=== PATIENT | male | born 1960 | race African-American/Black ===

== ENCOUNTER 2019-10-17 19:40 | Emergency (ER) | payer OTHER ==
[~2019-10-17] VITALS: Ht 188 cm; Wt 81.6 kg
[2019-10-17] MEDS ORDERED: METFORMIN HCL1000 M1 ORAL (19:51)
[2019-10-17 19:54] VITALS: BP 156/95
[2019-10-17] MEDS ORDERED: CEPHALEXIN500 MG ORAL (20:22)
[2019-10-17] MEDS ORDERED: TYLENOL EXTRA500 MG ORAL (20:22)
--- NOTE | 2019-10-17 20:22 | Emergency Room Report ---
History of Present Illness General Chief Complaint: Upper Extremity Injury Source: Patient Present Illness HPI 59-year-old male with history of type 2 diabetes currently taking metformin and control as well as taking baby aspirin every day here complaining of a right elbow pain status post fall that occurred this morning. Patient reports that he slipped and fell on the right elbow. Obvious effusion noted in right elbow however patient denies any pain at that site and has range of motion. Superficial laceration noted however patient reports he was bleeding a lot which admission was due to aspirin. Denies fever and chills, tingling numbness , cough or congestion, shortness of breath. Has not taken medication for symptom relief. Denies head injury or loss of consciousness. Patient is up-to- date with tetanus shot. Allergies: Coded Allergies: No Known Allergies (Unverified , 10/17/19) COVID-19 Screening Contact w/high risk pt: No Experienced COVID-19 symptoms?: No COVID-19 Testing performed CALENDER OPERATOR HELPER: No Patient History Past Medical History: see triage record Past Surgical History: none Pertinent Family History: none Immunizations: UTD Reviewed Nursing Documentation: PMH: Agreed; PSxH: Agreed Nursing Documentation-PMH Past Medical History: No History, Except For Hx Diabetes: Yes Review of Systems All Other Systems: negative except mentioned in HPI Physical Exam Vital Signs Date Time Temp Pulse Resp B/P (MAP) Pulse Ox O2 Delivery O2 Flow Rate FiO2 10/17/19 19:46 98.4 80 18 156/95 (115) 98 Room Air Sp02 EP Interpretation: reviewed, normal General Appearance: no apparent distress, alert, GCS 15, non-toxic Head: normocephalic, atraumatic Eyes: bilateral eye normal inspection, bilateral eye PERRL ENT: hearing grossly normal, normal pharynx, no angioedema, normal voice Neck: full range of motion, supple/symm/no masses Respiratory: chest non-tender, lungs clear, normal breath sounds, no rhonchi, no respiratory distress, no retraction, no wheezing, speaking full sentences Cardiovascular #1: regular rate, rhythm, no edema, no murmur Cardiovascular #2: 2+ radial (R), 2+ radial (L) Gastrointestinal: normal bowel sounds, non tender, soft, non-distended, no guarding, no rebound Rectal: deferred Genitourinary: no CVA tenderness Musculoskeletal: back normal, no lower extremity edema, swelling - Right elbow with a small laceration Neurologic: alert, motor strength/tone normal, oriented x3, sensory intact, responsive, speech normal Psychiatric: judgement/insight normal, memory normal, mood/affect normal, no suicidal/homicidal ideation Skin: laceration - Superficial laceration right elbow Lymphatic: no adenopathy Procedures Laceration/Wound Repair Laceration/Wound Repair : Consent: Verbal Wound Location: upper extremity - Right elbow Wound's Depth, Shape: superficial Wound Length (cm): 1 Wound Explored: contaminated Betadine Prep?: Yes Wound Repaired With: Dermabond Sterile Dressing Applied?: Yes Splint Applied?: No Sling Applied?: No Patient Tolerated: Well Complications: None Medical Decision Making PA Attestation All diagnoses and treatment plans were reviewed and discussed with my supervising physician Dr. Bailey Diagnostic Impression: Primary Impression: Bursitis of elbow Additional Impression: Elbow laceration ER Course 59-year-old male with history of type 2 diabetes currently taking metformin and control as well as taking baby aspirin every day here complaining of a right elbow pain status post fall that occurred this morning. Patient reports that he slipped and fell on the right elbow. Obvious effusion noted in right elbow however patient denies any pain at that site and has range of motion. Superficial laceration noted however patient reports he was bleeding a lot which admission was due to aspirin. Denies fever and chills, tingling numbness , cough or congestion, shortness of breath. Has not taken medication for symptom relief. Denies head injury or loss of consciousness. Patient is up-to- date with tetanus shot. Ddx considered but are not limited to : Elbow contusion versus fracture versus sprain versus strain versus bursitis, superficial versus deep laceration Vital signs: are WNL, pt. is afebrile H&PE are most consistent with: Elbow bursitis, superficial laceration of the elbow ORDERS: Right elbow x-ray, Keflex, motrin, patient did not want to take antibiotics unless it was a smaller dose for shortest time. Due to patient's diabetic status and the fact that the laceration occurred this morning and patient came in 12 hours later it is advised to begin take Ativan as patient agrees. ED INTERVENTIONS: Wound clean and dressed, DISCHARGE: At this time pt. is stable for d/c to home. Will provide printed patient care instructions, and any necessary prescriptions. Care plan and follow up instructions have been discussed with the patient prior to discharge. Take medication as directed, follow-up with primary care provider for referral to school psychology specialist, if worsening symptoms return to the emergency room Patient reported that Tylenol has not helped him and I wrote for Motrin as it however advised him that to space them out between taking Motrin and aspirin as it would not divide and increase chance of bleeding patient agrees. Other X-Ray Diagnostic Results Other X-Ray Diagnostic Results : X-Ray ordered: Right elbow # of Views/Limited Vs Complete: 3 View Indication: Swelling EP Interpretation: Yes KAROLINA Xray: Interpretation reviewed, by supervising MD, and agrees with findings. Interpretation: no dislocation, no fractures Impression: Other - Bursitis noted right elbow Electronically Signed by: Marc TURCIOS Scribe Text IMPRESSION: 1. No acute osseous abnormality. 2. Severe soft tissue thickening over the olecranon with intermixed subcutaneous emphysema could be due to trauma, and could represent olecranon bursitis. Correlate with presentation, as soft tissue gas suggests penetrating injury, which would potentiallypredispose to infection. Last Vital Signs Date Time Temp Pulse Resp B/P (MAP) Pulse Ox O2 Delivery O2 Flow Rate FiO2 10/17/19 19:46 98.4 80 18 156/95 (115) 98 Room Air Disposition: HOME, SELF-CARE Condition: Stable Scripts Ibuprofen* (MOTRIN*) 600 Mg Tablet 600 MG ORAL Q8H PRN for FOR PAIN, #30 TAB 0 Refills Prov: Marc Pearce 10/17/19 Cephalexin* (KEFLEX*) 500 Mg Capsule 500 MG ORAL EVERY 12 HOURS for 5 Days, #10 CAP 0 Refills Prov: Marc Pearce 10/17/19 Referrals: [facility],REFERR[facility] (PCP) Patient Instructions: Elbow Bursitis, Laceration Care, Adult, [id number] Additional Instructions: Take medication as directed, follow with primary care provider for referral to school psychology specialist, if worsening symptoms return to the emergency room Marc Pearce Oct 17, 2019 20:22
[2019-10-17] MEDS ORDERED: IBUPROFEN600 M1 ORAL (20:29)
--- NOTE | 2019-10-17 20:30 | Diagnostic Imaging Report ---
EXAM: XR Right Elbow Complete, 3 or More Views CLINICAL HISTORY: TRAUMA TECHNIQUE: Frontal, lateral and oblique views of the right elbow. COMPARISON: No relevant prior studies available. FINDINGS: Bones/joints: No acute osseous abnormality. No dislocation. Soft tissues: Severe soft tissue thickening over the olecranon with intermixed subcutaneous emphysema could be due to trauma, and could represent olecranon bursitis. Correlate with presentation, as soft tissue gas suggests penetrating injury, which would potentially predispose to infection. IMPRESSION: 1. No acute osseous abnormality. 2. Severe soft tissue thickening over the olecranon with intermixed subcutaneous emphysema could be due to trauma, and could represent olecranon bursitis. Correlate with presentation, as soft tissue gas suggests penetrating injury, which would potentially predispose to infection.
[2019-10-17 20:39] VITALS: BP 143/91
== END 2019-10-17 20:39 | disposition home or self-care (01) ==
LOC: EMR 20:04
DX: M71.9 Bursopathy, unspecified (principal); S51.011A Laceration without foreign body of right elbow, initial encounter; E11.9 Type 2 diabetes mellitus without complications; Z79.84 Long term (current) use of oral hypoglycemic drugs; Z79.82 Long term (current) use of aspirin; W01.0XXA Fall on same level from slipping, tripping and stumbling without subsequent striking against object, initial encounter; Y92.9 Unspecified place or not applicable
CPT/HCPCS: 12031; 73080; Z7502; 99283